=== PATIENT | female | born 1970 | race Hispanic/Latino ===

== ENCOUNTER 2017-03-09 12:00 | Inpatient (IN) | payer OTHER ==
--- NOTE | 2017-03-29 13:39 | Anesthesia Consultation ---
Anesthesia Consult and Med Hx Date of service: 03/30/17 - Airway Anesthetic Teeth Evaluation: Good, Partials (top) ROM Head & Neck: Adequate Mental/Hyoid Distance: Adequate Mallampati Class: Class II Intubation Access Assessment: Probably Good - Pulmonary Exam CTA: Yes - Cardiac Exam Cardiac Exam: RRR - Pre-Operative Health Status ASA Pre-Surgery Classification: ASA2 Proposed Anesthetic Plan: General - Pulmonary Hx Smoking: No Hx Sleep Apnea: No - Cardiovascular System Hx Hypertension: Yes (24 years) - Gastrointestinal Hx Gastroesophageal Reflux Disease: Yes - Endocrine Hx Non-Insulin Dependent Diabetes: No Hx Hypothyroidism: Yes - Other Systems Hx Obesity: Yes - Additional Comments Anesthesia Medical History Comments: Varicos Veins, venogram stenting
[2017-03-30] MEDS ORDERED: TRANSDERM-SCOP TD NR (06:00)
[2017-03-30] MEDS ORDERED: VERSED IV NR (06:00)
[2017-03-30] MEDS ORDERED: PEPCID IV NR (06:00)
[2017-03-30] MEDS ORDERED: XYLOCAINE 1% 20 mL ONE (07:14)
[2017-03-30] MEDS: LACTATED RINGERS 1,000 ML IV SCH ×2 (07:14→17:54)
[2017-03-30] MEDS ORDERED: MARCAINE-EPI/PF 0.5%-1:200,000 INFILTRATI ONE ×2 (07:15→09:02)
[2017-03-30] MEDS ORDERED: ZOFRAN ONE (07:20)
[2017-03-30] MEDS ORDERED: ROBINUL ONE ×2 (07:20)
[2017-03-30] MEDS ORDERED: SUBLIMAZE ONE (07:20)
[2017-03-30] MEDS ORDERED: ZEMURON IV ONE (07:20)
[2017-03-30] MEDS ORDERED: XYLOCAINE MPF 2% ONE (07:20)
[2017-03-30] MEDS ORDERED: DIPRIVAN 10 MG/ML IV ONE (07:20)
[2017-03-30] MEDS ORDERED: NEOSTIGMINE ONE (07:21)
[2017-03-30] MEDS ORDERED: MYLICON PO PRN (08:00)
[2017-03-30] MEDS ORDERED: FLAGYL 500 MG/100 ML 500 MG/100 ML BAG IV NR ×2 (08:00)
[2017-03-30] MEDS ORDERED: HEPARIN SUB-Q NR (08:00)
[2017-03-30] MEDS ORDERED: REGLAN IV PRN (08:00)
[2017-03-30] MEDS ORDERED: APRESOLINE IV PRN (08:00)
[2017-03-30] MEDS ORDERED: ANCEF/STERILE WATER 2 GM/20 ML IV NR (08:00)
[2017-03-30] MEDS ORDERED: LACTATED RINGERS 1,000 ML IV SCH (08:00)
[2017-03-30] MEDS ORDERED: ANCEF/STERILE WATER 2 GM/20 ML 2 GM/20 ML SYRINGE IV NR (08:00)
[2017-03-30] MEDS ORDERED: TRANSDERM-SCOP TD SCH (08:00)
[2017-03-30] MEDS ORDERED: LOVENOX SUB-Q NR ×2 (08:00)
[2017-03-30] MEDS ORDERED: DECADRON ONE (08:09)
[2017-03-30] MEDS ORDERED: CLORPACTIN WCS-90 IR ONE ×2 (08:42→09:03)
[2017-03-30] MEDS ORDERED: NACL ONE (08:44)
[2017-03-30] MEDS ORDERED: ePHEDrine SULFATE ONE (08:45)
[2017-03-30] MEDS ORDERED: NACL 0.9% IR ONE (09:01)
[2017-03-30] MEDS ORDERED: XYLOCAINE 1% 20 mL INFILTRATI ONE (09:02)
[2017-03-30] MEDS ORDERED: NACL IRRIGATION ONE (09:05)
[2017-03-30] MEDS ORDERED: DILAUDID ONE (09:17)
[2017-03-30] MEDS: DILAUDID IV PRN ×3 (10:04→10:39)
--- NOTE | 2017-03-30 10:23 | Anesthesia Day of Surgery ---
Anesthesia Day of Surgery - Day of Surgery Patient Examined: Yes Patient H&P Reviewed: Yes Patient is NPO: Yes
--- NOTE | 2017-03-30 10:24 | Post Anesthesia Evaluation ---
- Post Anesthesia Evaluation Patient Participated: Yes Airway Patent: Yes Stable Respiratory Function: Yes Nausea/Vomiting: No Temp > 96.8F: Yes Pain Manageable: Yes Adequeate Hydration: Yes Anesthesia Complications: No Block Receding Appropriately: Not Applicable Patient on Ventilator: No
[2017-03-30] MEDS: MORPHINE IV PRN ×3 (13:22→23:45)
--- NOTE | 2017-03-30 22:58 | Discharge Summary ---
<Violetta Rdz - Last Filed: 03/30/17 22:54> Providers - Providers Date of Admission: 03/30/17 06:48 Date of discharge: 03/31/17 Attending physician: MAEGAN DE LEÓN Primary care physician: MAYA GILMORE Hospitalization Reason for admission: surgery Condition: Good Procedures: Laparoscopic gastrojejunostomy revision with biliopancreatic limb lengthening. Hospital course: 46 y.o. F admitted to the hospital for Laparoscopic gastrojejunostomy revision with biliopancreatic limb lengthening. She tolerated the procedure well. On POD 1 she tolerated liquids and ambulated. Her pain was controlled. Disposition: DC- TO HOME OR SELFCARE Core Measure Documentation - Palliative Care Palliative Care/ Comfort Measures: Not Applicable - Core Measures Any of the following diagnoses?: none Exam - Physical Exam Narrative exam: Gen: Alert and awake Abd: obese, soft, dressings cdi. no rebound no guarding incisional tenderness. - Constitutional Vitals: Temp Pulse Resp BP Pulse Ox 98.0 F 70 18 132/75 96 03/30/17 19:29 03/30/17 19:29 03/30/17 19:29 03/30/17 19:29 03/30/17 22:00 Plan Activity: other (no lifting >15lbs for 6 weeks) Diet: clear liquids (sugar free) Wound: keep clean and dry Additional Instructions: follow up in office for wound check Follow up with: MAYA GILMORE MD [Primary Care Provider] - 7 Days <MAEGAN DE LEÓN - Last Filed: 03/31/17 10:42> Providers - Providers Date of Admission: 03/30/17 06:48 Attending physician: MAEGAN DE LEÓN Primary care physician: MAYA GILMORE Core Measure Documentation - Palliative Care Palliative Care/ Comfort Measures: Not Applicable - Core Measures Any of the following diagnoses?: none Exam - Constitutional Vitals: Temp Pulse Resp BP Pulse Ox 98.7 F 78 18 128/72 90 03/31/17 07:40 03/31/17 07:41 03/31/17 07:41 03/31/17 07:40 03/31/17 07:41
[2017-03-30] MEDS: ZOFRAN IV PRN (23:55)
[2017-03-31] MEDS: LACTATED RINGERS 1,000 ML IV SCH ×2 (00:30→06:50)
[2017-03-31] MEDS: NORCO PO PRN ×2 (06:16→11:24)
[2017-03-31 08:01] LABS: Alanine Aminotransferase 17 units/L (7-56); Albumin 3.7 g/dL (3.9-5); Albumin/Globulin Ratio 1.7 %; Alkaline Phosphatase 49 units/L (35-129); Anion Gap 19 mmol/L; BUN/Creatinine Ratio 15; Blood Urea Nitrogen 6 mg/dL (7-17); Carbon Dioxide 22 mmol/L (22-30); Glucose 101 mg/dL (65-100); Potassium 3.8 mmol/L (3.6-5.0); Sodium 137 mmol/L (137-145); Total Protein 5.9 g/dL (6.3-8.2)
[2017-03-31] MEDS ORDERED: LOVENOX SUB-Q SCH (12:00)
[2017-03-31 12:42] VITALS: BP 144/84
[2017-03-31 13:34] LABS: Basophils % (Auto) 0.2 % (0.0-1.8); Eosinophils % (Auto) 0.3 % (0.0-4.3); Hemoglobin 12.3 gm/dl (10.1-14.3); Mean Corpuscular HGB Conc 34 % (30-34); Mean Corpuscular Hemoglobin 31 pg (28-32); Mean Corpuscular Volume 91 fl (79-97); Platelet Count 163 K/mm3 (140-440); Red Blood Count 3.96 M/mm3 (3.65-5.03); Red Cell Distribution Width 14.6 % (13.2-15.2); White Blood Count 5.7 K/mm3 (4.5-11.0)
[2017-03-31] MEDS: ZOFRAN IV PRN (13:56)
== END 2017-03-31 16:52 | disposition home or self-care (01) | DRG 328 ==
LOC: 3A 03-30 06:48 → 3B-SURG 03-30 10:11
PROVIDERS: ADMIT Specialist; ATTEND Specialist
PROC: 0D164ZA Bypass Stomach to Jejunum, Percutaneous Endoscopic Approach (ICD-10-PCS; principal; 2017-03-31)
PROC: 0WBF4ZZ Excision of Abdominal Wall, Percutaneous Endoscopic Approach (ICD-10-PCS; 2017-03-31)
PROC: 0BQT4ZZ Repair Diaphragm, Percutaneous Endoscopic Approach (ICD-10-PCS; 2017-03-31)
DX: K95.89 Other complications of other bariatric procedure (principal); K21.9 Gastro-esophageal reflux disease without esophagitis; K44.9 Diaphragmatic hernia without obstruction or gangrene; I10 Essential (primary) hypertension; E03.9 Hypothyroidism, unspecified; E66.9 Obesity, unspecified; Z68.36 Body mass index [BMI] 36.0-36.9, adult; Y83.2 Surgical operation with anastomosis, bypass or graft as the cause of abnormal reaction of the patient, or of later complication, without mention of misadventure at the time of the procedure; G43.909 Migraine, unspecified, not intractable, without status migrainosus
CPT/HCPCS: 36415; 80053; 81025; 85025; 88304; 94760; C9250; J0690; J1100; J1170; J1644; J1650; J2250; J2270; J2405; J2704; J2710; J2765; J3010; J7120